=== PATIENT | male | born 1955 | race Native Hawaiian/Other Pacific Islander ===

== ENCOUNTER 2016-10-21 12:31 | Outpatient (CLI) | payer OTHER | END 2016-10-21 19:30 | disposition home or self-care (01) | LOC: RAD 12:31 | DX: M54.2 Cervicalgia (principal) ==

== ENCOUNTER 2016-11-18 11:04 | Outpatient (CLI) | payer OTHER | END 2016-11-18 12:20 | disposition home or self-care (01) | LOC: MRI 11:04 | DX: M54.2 Cervicalgia (principal) ==

== ENCOUNTER 2018-05-15 15:36 | Outpatient (CLI) | payer OTHER | END 2018-05-15 22:19 | disposition home or self-care (01) | LOC: US 15:36 | DX: N50.819 Testicular pain, unspecified (principal) ==